=== PATIENT | female | born 1980 | race Caucasian/White ===

== ENCOUNTER 2017-04-15 22:15 | Emergency (ER) | payer OTHER ==
[2017-04-15 22:47] VITALS: BP 123/77; PULSE 83; TEMP 98.7; BMI 25.0
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
== END 2017-04-16 03:38 | disposition home or self-care (01) ==
LOC: SUPCPDRO 22:15 → JER 22:15
DX: M79.605 Pain in left leg (principal); V43.62XA Car passenger injured in collision with other type car in traffic accident, initial encounter; Y92.414 Local residential or business street as the place of occurrence of the external cause; Y93.89 Activity, other specified; Y99.8 Other external cause status
CPT/HCPCS: 73590-TC-LT; 84703; 99282-25